=== PATIENT | female | born 1985 | race African-American/Black ===

== ENCOUNTER 2024-11-27 18:14 | Emergency (ER) | payer MEDICAID ==
[~2024-11-27] VITALS: Ht 162.6 cm; Wt 54.0 kg
[2024-11-27 18:16] VITALS: O2SAT 99
[2024-11-27] MEDS: SODIUM CHLORIDE 0.9% 1,000 ML IV ONE (18:52)
[2024-11-27] MEDS: HALOPERIDOL LACTATE 5MG/ML VIAL IM ONE (18:52)
[2024-11-27] MEDS: FAMOTIDINE 20MG/2ML VIAL IV ONE (18:52)
[2024-11-27 19:29] LABS: HCG SCREEN NEGATIVE
[2024-11-27 19:31] LABS: HEMATOCRIT. 28.3 % (36.0-48.0); HEMOGLOBIN. 8.9 g/dL (12.0-16.0); MEAN PLATELET VOLUME 9.0 fl (7.4-10.4); PLATELET 406 x1000/uL (130-400); RED BLOOD CELL COUNT 4.09 mill/uL (4.2-5.4); RED CELL DISTRIBUTION WIDTH 18.8 % (11.6-14.6)
[2024-11-27 19:32] LABS: CREATININE 0.8 mg/dL (0.6-1.0); UREA NITROGEN BLOOD 11 mg/dL (9-23)
[2024-11-27 19:33] LABS: ETHANOL BLOOD < 10 mg/dL (<10)
[2024-11-27 19:34] LABS: ASPARTATE AMINOTRANSFERASE 17 IU/L (<34); BILIRUBIN DIRECT 0.1 mg/dL (<=3.0); PROTEIN TOTAL 7.0 g/dL (6.0-8.3)
[2024-11-27 19:35] LABS: BILIRUBIN TOTAL 0.4 mg/dL (0.1-1.0)
[2024-11-27 20:00] VITALS: BP 94/44; PULSE 68; RESP 15; TEMP 36.6; O2SAT 98
[2024-11-27] MEDS ORDERED: ONDA-239 PO (20:26)
[2024-11-27 20:29] LABS: LYMPHOCYTES % MANUAL 4.0 % (20.0-60.0); MONOCYTES % MANUAL 3.0 % (2.0-8.0); NEUTROPHILS % MANUAL 92.0 % (45.0-75.0); PLATELET ESTIMATE SLIGHTLY INCREASED
[2024-11-27 20:31] LABS: BAND% 1.0 % (1.0-6.0)
== END 2024-11-27 20:32 | disposition home or self-care (01) ==
LOC: ER 18:14
DX: R11.2 Nausea with vomiting, unspecified (principal); D50.9 Iron deficiency anemia, unspecified; F12.90 Cannabis use, unspecified, uncomplicated; Z79.899 Other long term (current) drug therapy
CPT/HCPCS: 80076; 80048; 80320; 84703; 83690; 83735; 85025; 36415; 96361; 96372; 96374; 99284; J1308; J1630; J7030; 99285; G0480